=== PATIENT | male | born 1950 | race Caucasian/White ===

== ENCOUNTER 2017-06-22 15:12 | Inpatient (IN) | payer OTHER ==
[~2017-06-22] VITALS: Ht 172.7 cm; Wt 75.5 kg
[2017-06-22] MEDS ORDERED: TESSALON PERLE100 MG PO (16:04)
[2017-06-22] MEDS ORDERED: SIMVASTATIN40 M1 PO (16:04)
[2017-06-22 16:08] LABS: PLATELET COUNT 243 x10^3mcL (130-400); RED CELL DISTRIBUTION WIDTH 13.3 % (11.5-14.5)
[2017-06-22 16:15] LABS: CALCIUM 8.5 mg/dL (8.5-10.1); CARBON DIOXIDE 25.3 mmol/L (21-32); CREATININE SERUM 1.7 mg/dL (0.7-1.3); POTASSIUM SERUM 4.2 mmol/L (3.5-5.1)
[2017-06-22 16:19] LABS: BILIRUBIN TOTAL 2.3 mg/dL (0.20-1.00); TOTAL PROTEIN, SERUM 7.2 g/dL (6.4-8.2)
[2017-06-22 16:20] LABS: ALBUMIN 2.4 g/dL (3.4-5.0)
[2017-06-22 16:35] LABS: BAND NEUTROPHIL 11 % (0-10); BASOPHIL 0 % (0-2); MONOCYTE 1 % (0-7); PLATELET MORPHOLOGY PLATELETS NORMAL; SEGMENTED NEUTROPHILS 86 % (37-75); rbc morphology (normal/abnorm) NORMAL (NORMAL)
[2017-06-22 19:56] VITALS: BP 120/74
[2017-06-22 20:06] VITALS: BP 120/74
[2017-06-22 20:13] VITALS: Ht 172.7 cm; Wt 75.5 kg
[2017-06-23 01:50] LABS: microscopic required? YES
[2017-06-23 01:51] LABS: urine erythrocyte 2+ (NEGATIVE)
[2017-06-23 05:33] VITALS: BP 107/70
[2017-06-23 06:33] LABS: PLATELET COUNT 217 x10^3mcL (130-400); RED CELL DISTRIBUTION WIDTH 13.3 % (11.5-14.5)
[2017-06-23 06:58] LABS: BASOPHIL % 0 % (0-2)
[2017-06-23 07:07] LABS: CALCIUM 8.2 mg/dL (8.5-10.1); CARBON DIOXIDE 24.2 mmol/L (21-32); CREATININE SERUM 1.6 mg/dL (0.7-1.3); POTASSIUM SERUM 4.3 mmol/L (3.5-5.1)
[2017-06-23 09:57] VITALS: BP 104/64
[2017-06-23 14:32] VITALS: BP 97/63
[2017-06-23 18:49] VITALS: BP 102/62
[2017-06-23 21:12] VITALS: BP 93/61
[2017-06-24 05:42] VITALS: BP 105/63
[2017-06-24 10:23] VITALS: BP 106/61
[2017-06-24 13:29] VITALS: BP 99/69
[2017-06-24 17:21] VITALS: BP 113/67
[2017-06-24 20:49] VITALS: BP 106/63
[2017-06-25 05:46] VITALS: BP 119/70
[2017-06-25 06:26] LABS: CALCIUM 8.5 mg/dL (8.5-10.1); CARBON DIOXIDE 27.5 mmol/L (21-32); CREATININE SERUM 1.3 mg/dL (0.7-1.3); POTASSIUM SERUM 4.4 mmol/L (3.5-5.1)
[2017-06-25 06:50] LABS: PLATELET COUNT 386 x10^3mcL (130-400); RED CELL DISTRIBUTION WIDTH 13.8 % (11.5-14.5)
[2017-06-25 06:52] LABS: BASOPHIL % 0 % (0-2)
[2017-06-25 09:18] VITALS: BP 117/64
[2017-06-25 13:19] VITALS: BP 131/71
[2017-06-25 16:50] VITALS: BP 129/76
[2017-06-25 20:37] VITALS: BP 105/61
[2017-06-26 06:11] VITALS: BP 112/70
[2017-06-26 06:18] LABS: CALCIUM 8.6 mg/dL (8.5-10.1); CARBON DIOXIDE 27.3 mmol/L (21-32); CHLORIDE SERUM 110 mmol/L (98-107); CREATININE SERUM 1.1 mg/dL (0.7-1.3); GFR1 > 60 mL/min; GLUCOSE SERUM 142 mg/dL (74-106); POTASSIUM SERUM 3.7 mmol/L (3.5-5.1); SODIUM SERUM 145 mmol/L (136-145)
[2017-06-26 07:16] LABS: RED CELL DISTRIBUTION WIDTH 13.9 % (11.5-14.5)
[2017-06-26 07:17] LABS: PLATELET COUNT 443 x10^3mcL (130-400)
[2017-06-26 07:37] LABS: BAND NEUTROPHIL 2 % (0-10); MONOCYTE 5 % (0-7); SEGMENTED NEUTROPHILS 87 % (37-75); rbc morphology (normal/abnorm) NORMAL (NORMAL)
[2017-06-26 09:10] VITALS: BP 126/67
[2017-06-26 13:20] VITALS: BP 126/67
[2017-06-26 13:31] VITALS: BP 139/79
== END 2017-06-26 16:35 | disposition home or self-care (01) | DRG 193 ==
LOC: ED 15:12 → DU 17:49
PROVIDERS: Emergency Medicine; Internal Medicine
PROC: 5A09357 Assistance with Respiratory Ventilation, Less than 24 Consecutive Hours, Continuous Positive Airway Pressure (ICD-10-PCS; principal; 2017-06-22)
DX: J18.1 Lobar pneumonia, unspecified organism (principal); J96.01 Acute respiratory failure with hypoxia; J44.1 Chronic obstructive pulmonary disease with (acute) exacerbation; M62.82 Rhabdomyolysis; J44.0 Chronic obstructive pulmonary disease with (acute) lower respiratory infection; E78.5 Hyperlipidemia, unspecified; Z68.24 Body mass index [BMI] 24.0-24.9, adult; Z87.891 Personal history of nicotine dependence; E86.0 Dehydration
CPT/HCPCS: 36600; 83880; 87804; 90658; J0696; J1644; J1956; J2270; J2543; J2920; J7030; J7050; J7613; J7620; J7626; Q0092; Q9967